=== PATIENT | female | born 1995 | race Two or more races ===

== ENCOUNTER 2019-05-16 22:33 | Emergency (ER) | payer MEDICAID ==
[~2019-05-16] VITALS: Ht 170.2 cm; Wt 93.0 kg
--- NOTE | 2019-05-16 22:55 | NUR ---
ED Nurse Note: Recieved pt from home, here with mother and c/o right flank pain, pt states has been having pain for about 1 monh, pt was diagnosed with UTI and told pain was from that, pt completed treatment and all antibiotics and states pain is worse, tp wearing lidocaine patch to area, denies injury or any other omplaints, no nausea, emesis, or fevers, urine sample collected and sent, will resume care as ordered and closely monitor.
[2019-05-16] MEDS ORDERED: HYDROcodone/Acetamin 5/325 tab ORAL ONE (23:00)
[2019-05-16 23:39] LABS: APPEARANCE,URINE CLEAR; BILIRUBIN, URINE NEGATIVE (NEGATIVE); COLOR,URINE PALE YELLOW; GLUCOSE, URINE (UA) NEGATIVE (NEGATIVE); KETONES,URINE NEGATIVE (NEGATIVE); LEUKOCYTE ESTERASE ,URINE NEGATIVE (NEGATIVE); NITRITE,URINE NEGATIVE (NEGATIVE); PH,URINE 5 (4.5-8.0); PROTEIN,URINE NEGATIVE (NEGATIVE); UROBILINOGEN,URINE NORMAL MG/DL (0.0-1.0)
--- NOTE | 2019-05-17 00:25 | NUR ---
ED Nurse Note: Pt continues ot ers quietly inb ed, meds givenf or pain effecive, pain level at 3/10 and pt states she is feeling much better, new orders recieved, IV line placed and labs drawn, v/s stable, will continue to closely monitor, pt ambulaing well to bahoom, denies any other distres or discomforts.
[2019-05-17 00:30] VITALS: BP 121/69
[2019-05-17 00:53] LABS: BASOPHILS % (AUTO) 0.6 % (0.0-2.0); HEMATOCRIT 39.7 % (37.0-47.0); HEMOGLOBIN 13.5 G/DL (12.0-16.0); LYMPHOCYTES % (AUTO) 37.3 % (20.0-45.0); MEAN CORPUSCULAR VOLUME 87 FL (80-99); MONOCYTES % (AUTO) 6.6 % (1.0-10.0); NEUTROPHILS % (AUTO) 53.6 % (45.0-75.0); PLATELET COUNT 279 K/UL (150-450); RED BLOOD COUNT 4.57 M/UL (4.20-5.40); RED CELL DISTRIBUTION WIDTH 11.8 % (11.6-14.8); WHITE BLOOD COUNT 11.5 K/UL (4.8-10.8)
[2019-05-17 00:56] LABS: ANION GAP 6 mmol/L (5-15); BLOOD UREA NITROGEN 11 mg/dL (7-18); CALCIUM 9.2 MG/DL (8.5-10.1); CARBON DIOXIDE 29 MMOL/L (21-32); CHLORIDE 105 MMOL/L (98-107); CREATININE 0.8 MG/DL (0.55-1.30); POTASSIUM 3.8 MMOL/L (3.5-5.1); SODIUM 140 MMOL/L (136-145)
[2019-05-17 00:57] LABS: INR 0.9 (0.9-1.1)
[2019-05-17 01:02] LABS: ALANINE AMINOTRANSFERASE 30 U/L (12-78); ALBUMIN 3.7 G/DL (3.4-5.0); ALKALINE PHOSPHATASE 90 U/L (46-116); ASPARTATE AMINO TRANSFERASE 17 U/L (15-37); BILIRUBIN,TOTAL 0.2 MG/DL (0.2-1.0)
--- NOTE | 2019-05-17 01:03 | Emergency Room Report ---
History of Present Illness General Chief Complaint: Lower Back Pain or Injury Source: Patient Present Illness HPI The patient presents with 2 to 3 weeks of right flank pain. When it began she was told she had a bladder infection. She denies any fevers or chills. She was treated with antibiotics. She is uncertain of the name but it was twice a day and large pills which suggest it might of been Bactrim. Never had urinary tract infections in the past. She does not remember any incident that began the pain. However she does relate that the pain radiates down her right leg at times. It is also worse with changing position. She occasionally has muscle spasms. She denies fevers or chills. There is no hematuria. Her last period was normal for her and she does not believe she is . She related that her ancestors might of had kidney stones. This occurred at older ages. Her mom relates a history of gallstones. When asked about intention radford on her left arm she states that these happened many years ago. She denies any history of depression. She does not take any psychiatric medications at this time. Allergies: Coded Allergies: No Known Allergies (Unverified , 05/16/19) Patient History Past Medical History: see triage record Social History: Reports: drug use - THC; Denies: smoking, alcohol use Social History Narrative Psychology student at [employer] Last Menstrual Period: 04/29/19 Reviewed Nursing Documentation: PMH: Agreed; PSxH: Agreed Nursing Documentation-PMH Past Medical History: No Stated History Review of Systems All Other Systems: negative except mentioned in HPI Physical Exam Vital Signs Date Time Temp Pulse Resp B/P (MAP) Pulse Ox O2 Delivery O2 Flow Rate FiO2 05/16/19 22:37 98.4 85 18 117/76 (90) 97 Room Air Sp02 EP Interpretation: reviewed, normal General Appearance: well appearing, no apparent distress, GCS 15 Head: normocephalic Eyes: bilateral eye normal inspection, bilateral eye PERRL, bilateral eye EOMI ENT: moist mucus membranes Neck: supple Respiratory: lungs clear, normal breath sounds Cardiovascular #1: regular rate, rhythm Cardiovascular #2: 2+ radial (R) Gastrointestinal: normal inspection, normal bowel sounds, non tender, no mass, non-distended Genitourinary: CVA tenderness (R) Musculoskeletal: gait/station normal, normal range of motion, other - Straight leg raise negative after medication, tender - Lumbar minimal Neurologic: alert, oriented x3, motor strength/tone normal, DTRs symmetric, sensory intact, cerebellar normal, normal gait, grossly normal Psychiatric: mood/affect normal Skin: other - Old intention radford from cutting left forearm Medical Decision Making Diagnostic Impression: Primary Impression: Lumbar strain Qualified Codes: S39.012A - Strain of muscle, fascia and tendon of lower back , initial encounter Additional Impression: Partial sacralization left lumbar 5 ER Course Patient presents with 2 to 3 weeks of right flank and lumbar pain. Differential includes pyelonephritis, UTI, lumbar strain amongst others. Evaluation with urinalysis as she believes that this is a urinary tract infection. The patient will be treated with Motrin and [place]. Urinalysis negative. The patient has significant lumbar pain for this long and with a negative urinalysis labs are ordered as well as abdominal films. Labs unremarkable. Abdominal film reveals partial sacralization left lumbar 5. Pain is improved with treatment. Discussed x-ray results with patient and treatment plan. Patient stable for outpatient observation and treatment. Laboratory Tests Test 05/16/19 23:00 05/17/19 00:25 Urine Color Pale yellow Urine Appearance Clear Urine pH 5 (4.5-8.0) Urine Specific [place] 1.025 (1.005-1.035) Urine Protein Negative (NEGATIVE) Urine Glucose (UA) Negative (NEGATIVE) Urine Ketones Negative (NEGATIVE) Urine Blood 2+ (NEGATIVE) H Urine Nitrite Negative (NEGATIVE) Urine Bilirubin Negative (NEGATIVE) Urine Urobilinogen Normal MG/DL (0.0-1.0) Urine Leukocyte Esterase Negative (NEGATIVE) Urine RBC 2-4 /HPF (0 - 2) H Urine WBC 0 /HPF (0 - 2) Urine Squamous Epithelial Cells Few /LPF (NONE/OCC) Urine Bacteria None /HPF (NONE) Urine HCG, Qualitative Negative (NEGATIVE) White Blood Count 11.5 K/UL (4.8-10.8) H Red Blood Count 4.57 M/UL (4.20-5.40) Hemoglobin 13.5 G/DL (12.0-16.0) Hematocrit 39.7 % (37.0-47.0) Mean Corpuscular Volume 87 FL (80-99) Mean Corpuscular Hemoglobin 29.5 PG (27.0-31.0) Mean Corpuscular Hemoglobin Concent 33.9 G/DL (32.0-36.0) Red Cell Distribution Width 11.8 % (11.6-14.8) Platelet Count 279 K/UL (150-450) Mean Platelet Volume 7.3 FL (6.5-10.1) Neutrophils (%) (Auto) 53.6 % (45.0-75.0) Lymphocytes (%) (Auto) 37.3 % (20.0-45.0) Monocytes (%) (Auto) 6.6 % (1.0-10.0) Eosinophils (%) (Auto) 2.0 % (0.0-3.0) Basophils (%) (Auto) 0.6 % (0.0-2.0) Prothrombin Time 9.6 SEC (9.30-11.50) Prothrombin Time INR 0.9 (0.9-1.1) PTT 30 SEC (23-33) Sodium Level 140 MMOL/L (136-145) Potassium Level 3.8 MMOL/L (3.5-5.1) Chloride Level 105 MMOL/L (98-107) Carbon Dioxide Level 29 MMOL/L (21-32) Anion Gap 6 mmol/L (5-15) Blood Urea Nitrogen 11 mg/dL (7-18) Creatinine 0.8 MG/DL (0.55-1.30) Estimate Glomerular Filtration Rate > 60 mL/min (>60) Glucose Level 99 MG/DL (74-106) Calcium Level 9.2 MG/DL (8.5-10.1) Total Bilirubin 0.2 MG/DL (0.2-1.0) Aspartate Amino Transferase (AST) 17 U/L (15-37) Alanine Aminotransferase (ALT) 30 U/L (12-78) Alkaline Phosphatase 90 U/L (46-116) Total Protein 7.5 G/DL (6.4-8.2) Albumin 3.7 G/DL (3.4-5.0) Globulin 3.8 g/dL Albumin/Globulin Ratio 1.0 (1.0-2.7) Lipase 126 U/L (73-393) Other X-Ray Diagnostic Results Other X-Ray Diagnostic Results : X-Ray ordered: Abdomen # of Views/Limited Vs Complete: 2 View Indication: Pain EP Interpretation: Yes Interpretation: no dislocation, no soft tissue swelling, no fractures, other - Partial sacralization left L5 Impression: Other Electronically Signed by: Electronically signed by Jose Waggoner MD Status: improved Disposition: HOME, SELF-CARE Condition: Improved Scripts Methocarbamol* (ROBAXIN-500*) 500 Mg Tablet 500 MG ORAL TID PRN for muscle spasm, #10 TAB 0 Refills Prov: Jose Waggoner MD 05/17/19 Ibuprofen* (MOTRIN*) 600 Mg Tablet 600 MG ORAL Q6H PRN for For Pain, #20 TAB 0 Refills Prov: Jose Waggoner MD 05/17/19 Referrals: NOT CHOSEN IPA/,REFERRING (PCP) Jose Waggoner MD May 17, 2019 01:03
[2019-05-17 01:30] VITALS: BP 118/61
[2019-05-17] MEDS ORDERED: IBUPROFEN600 MG ORAL (01:34)
[2019-05-17] MEDS ORDERED: ROBAXIN-500MG ORAL (01:35)
--- NOTE | 2019-05-17 01:40 | NUR ---
ER DISCHARGE NOTE: Patient is cleared to be discharged per ERMD, pt is aox4, on room air, with stable vital signs. pt was given dc and prescription instructions, pt was able to verbalize understanding, pt id band and iv site removed without complications. pt is able to ambulate with steady gait. pt took all belongings.
[2019-05-17 01:45] VITALS: BP 118/61
--- NOTE | 2019-05-17 12:38 | Diagnostic Imaging Report ---
Indication: Abdominal pain for one day Technique: Supine view of the abdomen Comparison: none Findings: Bowel gas pattern is unremarkable. No unusual masses or calcifications. Impression: No acute process This agrees with the preliminary interpretation provided by the emergency room physician
== END 2019-05-17 01:45 | disposition home or self-care (01) ==
LOC: EMR 23:00
DX: S39.012A Strain of muscle, fascia and tendon of lower back, initial encounter (principal); M43.27 Fusion of spine, lumbosacral region; X58.XXXA Exposure to other specified factors, initial encounter; Y92.9 Unspecified place or not applicable
CPT/HCPCS: 36415; 74018; 80053; 81003; 81025; 83690; 85025; 85610; 85730; Z7502; 99283